=== PATIENT | female | born 1990 | race African-American/Black ===

== ENCOUNTER 2018-05-05 22:55 | Emergency (ER) | payer SELFPAY ==
[~2018-05-05] VITALS: Ht 167.6 cm; Wt 70.5 kg
[2018-05-06 04:30] LABS: CLARITY URINE TURBID (CLEAR); COLOR URINE YELLOW (YELLOW); KETONES URINE TRACE (NEGATIVE); LEUKOCYTE ESTERASE URINE 3+ (NEGATIVE); NITRITE URINE NEGATIVE (NEGATIVE); OCCULT BLOOD URINE 2+ (NEGATIVE); PROTEIN URINE 1+ (NEGATIVE); SPECIFIC GRAVITY URINE 1.012 (1.005-1.030); UROBILINOGEN URINE 0.2 E.U./dL (0.2-1.0)
[2018-05-06 05:37] VITALS: BP 137/84
== END 2018-05-06 05:38 | disposition home or self-care (01) ==
LOC: ER 22:55
DX: N39.0 Urinary tract infection, site not specified (principal)
CPT/HCPCS: 81003; 81025; 87077; 87086; 87186; 99284

== ENCOUNTER 2018-07-02 16:29 | Emergency (ER) | payer SELFPAY ==
[~2018-07-02] VITALS: Ht 167.6 cm; Wt 67.0 kg
[2018-07-02 16:37] VITALS: BP 121/72
== END 2018-07-02 16:46 | disposition left against medical advice (07) ==
LOC: ER 16:29
DX: R55 Syncope and collapse (principal); Z53.21 Procedure and treatment not carried out due to patient leaving prior to being seen by health care provider

== ENCOUNTER 2018-07-09 13:23 | Emergency (ER) | payer SELFPAY ==
[~2018-07-09] VITALS: Ht 167.6 cm; Wt 68.0 kg
[2018-07-09 16:52] LABS: BASOPHILS % 1.1 % (0.0-2.0); HEMATOCRIT. 36.9 % (36.0-48.0); LYMPHOCYTES % 29.5 % (20.0-50.0); MEAN CORPUSCULAR HEMOGLOBIN 28.6 pg (28.0-32.0); MEAN CORPUSCULAR VOLUME 87.6 fL (81.0-99.0); MEAN PLATELET VOLUME 7.9 fl (7.4-10.4); MONOCYTES % 5.6 % (2.0-8.0); NEUTROPHILS % 62.8 % (40.0-76.0); PLATELET 265 x1000/uL (130-400); RED BLOOD CELL COUNT 4.21 mill/uL (4.2-5.4); RED CELL DISTRIBUTION WIDTH 16.8 % (11.6-14.6)
[2018-07-09 16:55] LABS: CHLORIDE 106 mEq/L (98-107)
[2018-07-09 16:56] LABS: INR 1.1
[2018-07-09 17:05] LABS: CLARITY URINE CLEAR (CLEAR); COLOR URINE YELLOW (YELLOW); KETONES URINE NEGATIVE (NEGATIVE); LEUKOCYTE ESTERASE URINE TRACE (NEGATIVE); NITRITE URINE NEGATIVE (NEGATIVE); OCCULT BLOOD URINE NEGATIVE (NEGATIVE); PH URINE >=9.0 (4.5-8.0); PROTEIN URINE NEGATIVE (NEGATIVE); SPECIFIC GRAVITY URINE 1.019 (1.005-1.030); UROBILINOGEN URINE 0.2 E.U./dL (0.2-1.0)
[2018-07-09 18:13] VITALS: BP 120/76
== END 2018-07-09 18:15 | disposition home or self-care (01) ==
LOC: ER 13:23
DX: N30.00 Acute cystitis without hematuria (principal); R42 Dizziness and giddiness; R55 Syncope and collapse
CPT/HCPCS: 36415; 80053; 81003; 81025; 83690; 85025; 85610; 93005; 99285